=== PATIENT | male | born 1940 | race Caucasian/White ===

== ENCOUNTER 2021-08-06 12:51 | Inpatient (IN) | payer MEDICARE, OTHER ==
[~2021-08-06] VITALS: Ht 180.3 cm; Wt 74.1 kg
[~2021-08-06 12:51] MED LIST: ALDACTONE 25MG25 MG PO; ALDACTONE25 MG PO; ALPRAZOLAM0.5 MG PO; AMIODARONE HCL200 MG PO; ASPIRIN EC81 MG PO; ATORVASTATIN CA20 MG PO; CARDURA2 MG PO; CEFPODOXIME PR200 MG PO; CLOPIDOGREL75 MG PO; COLACE 100MG C100 MG PO; COZAAR 25MG TAB25 MG PO; CYANOCOBAL1000 MCG/1 INJ; DOXAZOSIN MESYLA2 MG PO; DULERA 200 MCG8.8 GM INH; ENTRESTO 24 MG1 EACH PO; FINASTERIDE5 MG PO; FUROSEMIDE40 MG PO; GABAPENTIN100 MG PO; GLIPIZIDE10 MG PO; K-DUR TAB 20 M20 MEQ PO; K-TAB ER20 MEQ PO; LASIX20 MG PO; LEVAQUIN500 MG PO; LEVOCETIRIZINE D5 MG PO; LEVOTHYROXINE100 MCG PO; LISINOPRIL2.5 MG PO; LOPRESSOR 50 MG50 MG PO; METFORMIN HCL500 MG PO; NICOTINE PATCH1 EAC2 TOP; NYSTATIN100000 UNI PO; OMEPRAZOLE20 MG PO; PANTOPRAZOLE SO40 MG PO; PAROXETINE HCL10 MG PO; TYLENOL WITH C1 EACH PO; ULTRAM50 MG PO; VITAMIN D21250 MCG PO; XANAX0.5 MG PO
[2021-08-06 14:31] LABS: HEMOGLOBIN 13.4 gm/dl (14.0-17.5); RED BLOOD COUNT 4.26 M/UL (4.20-5.50); WHITE BLOOD COUNT 17.3 K/UL (4.5-11.0)
[2021-08-06 15:02] LABS: BUN/CREATININE RATIO 17 (0-10)
[2021-08-06] MEDS ORDERED: ATORVASTATIN CA40 MG PO (18:36)
[2021-08-06] MEDS ORDERED: CLOPIDOGREL75 MG PO (18:37)
[2021-08-06] MEDS ORDERED: METOPROLOL TART50 MG PO (18:42)
[2021-08-06] MEDS ORDERED: ENTRESTO 24 MG1 EACH PO (18:45)
[2021-08-06] MEDS ORDERED: NITROGLYCERIN0.4 MG SL (18:46)
[2021-08-06] MEDS ORDERED: KLONOPIN0.5 MG PO (18:46)
[2021-08-06] MEDS ORDERED: LEVOCETIRIZINE D5 MG PO (18:47)
[2021-08-06] MEDS ORDERED: BUMETANIDE1 MG PO (18:47)
[2021-08-06] MEDS ORDERED: LEVOTHYROXINE50 MCG PO (18:48)
[2021-08-07 03:20] LABS: CANDIDA ALBICANS Not Detected (Negative); CANDIDA KRUSEI Not Detected (Negative); CANDIDA TROPICALIS Not Detected (Negative); ESCHERICHIA COLI Not Detected (Negative); HAEMOPHILUS INFLUENZAE Not Detected (Negative); KLEBSIELLA OXYTOCA Not Detected (Negative); KLEBSIELLA PNEUMONIAE Not Detected (Negative); KPC-CARBAPENEM-RESISTANCE GENE Not Detected (Negative); PROTEUS Not Detected (Negative); PSEUDOMONAS AERUGINOSA Not Detected (Negative); SERRATIA MARCESANS Not Detected (Negative); STAPHYLOCOCCUS Not Detected (Negative); STAPHYLOCOCCUS AUREUS Not Detected (Negative); STREP AGALACTIAE (GROUP B) Not Detected (Negative); STREP PYOGENES (GROUP A) Not Detected (Negative); vanA/B (VANCOMYCIN RESIST GENE Not Detected (Negative)
[2021-08-07 04:33] LABS: STREPTOCOCCUS DETECTED (Negative)
[2021-08-07 08:57] LABS: HEMOGLOBIN 11.6 gm/dl (14.0-17.5)
[2021-08-07 08:58] LABS: RED BLOOD COUNT 3.66 M/UL (4.20-5.50); WHITE BLOOD COUNT 12.7 K/UL (4.5-11.0)
[2021-08-08 02:33] LABS: HEMOGLOBIN 10.7 gm/dl (14.0-17.5); RED BLOOD COUNT 3.38 M/UL (4.20-5.50); WHITE BLOOD COUNT 11.6 K/UL (4.5-11.0)
--- NOTE | 2021-08-08 06:43 | NUR ---
Notified Dr of EKG results - Dr stated it looked like sinus tachycardia. No new orders received.
--- NOTE | 2021-08-08 08:30 | NUR ---
CONTACTED AT THIS TIME AND EXPLAINED THAT THE PARTIENT WAS STILL HAVING A HEART RATE IN THE 120-130 RANGE AND THAT THE PATIENT WAS HAVING MILD INCREASED WORK OF BREATHING. HE STATES TO DO AN EKG AND [facility] WILL COME SEE THE PATIENT. I REQUESTED TRANSFER TO A HIGHER LEVEL OF CARE AND HE STATES TO HOLD OFF AT THIS TIME.
[2021-08-09 03:13] LABS: RED BLOOD COUNT 3.53 M/UL (4.20-5.50)
[2021-08-09 03:18] LABS: WHITE BLOOD COUNT 7.8 K/UL (4.5-11.0)
[2021-08-10 03:18] LABS: HEMOGLOBIN 10.5 gm/dl (14.0-17.5); RED BLOOD COUNT 3.33 M/UL (4.20-5.50); WHITE BLOOD COUNT 6.3 K/UL (4.5-11.0)
[2021-08-11 08:27] LABS: HEMOGLOBIN 11.2 gm/dl (14.0-17.5); RED BLOOD COUNT 3.57 M/UL (4.20-5.50)
[2021-08-11 08:28] LABS: WHITE BLOOD COUNT 8.4 K/UL (4.5-11.0)
[2021-08-11] MEDS ORDERED: LOPRESSOR 25 MG25 MG PO (09:14)
[2021-08-11] MEDS ORDERED: ELIQUIS 5 MG TAB5 MG PO (09:14)
[2021-08-11] MEDS ORDERED: CEFTRIAXON2 GM/50 ML IV (09:14)
[2021-08-11] MEDS ORDERED: POLYETHYLENE GL17 GM PO (09:27)
[2021-08-11] MEDS ORDERED: LEVOTHYROXINE75 MCG PO (09:27)
[2021-08-11] MEDS ORDERED: DULCOLAX5 MG PO (09:27)
[2021-08-11] MEDS ORDERED: AMITIZA24 MCG PO (09:27)
[2021-08-11] MEDS ORDERED: AMIODARONE HCL200 MG PO ×2 (09:27)
[2021-08-11] MEDS ORDERED: ROXICODONE TAB 55 MG PO (09:39)
[2021-08-11] MEDS ORDERED: TOPROL XL50 MG PO (09:48)
--- NOTE | 2021-08-11 14:06 | NUR ---
REPORT CALLED TO [facility] AND [facility] CALLED TO TRANSPORT PT AT THIS TIME
== END 2021-08-12 03:39 | disposition swing bed (61) | DRG 871 ==
LOC: ER1 12:51 → CDU 17:46 → M/S 17:46
PROVIDERS: Emergency Medicine; Internal Medicine; Physician Assistant; ADMIT Internal Medicine
PROC: B24BZZZ Ultrasonography of Heart with Aorta (ICD-10-PCS; principal; 2021-08-07)
PROC: 3E03329 Introduction of Other Anti-infective into Peripheral Vein, Percutaneous Approach (ICD-10-PCS; 2021-08-08)
DX: A40.8 Other streptococcal sepsis (principal); J18.9 Pneumonia, unspecified organism; Z20.822 Contact with and (suspected) exposure to COVID-19; I50.22 Chronic systolic (congestive) heart failure; M48.56XA Collapsed vertebra, not elsewhere classified, lumbar region, initial encounter for fracture; I13.0 Hypertensive heart and chronic kidney disease with heart failure and stage 1 through stage 4 chronic kidney disease, or unspecified chronic kidney disease; N17.9 Acute kidney failure, unspecified; E11.22 Type 2 diabetes mellitus with diabetic chronic kidney disease; I25.10 Atherosclerotic heart disease of native coronary artery without angina pectoris; N18.30 Chronic kidney disease, stage 3 unspecified; I71.4 Abdominal aortic aneurysm, without rupture; I25.5 Ischemic cardiomyopathy; K80.20 Calculus of gallbladder without cholecystitis without obstruction; N40.0 Benign prostatic hyperplasia without lower urinary tract symptoms; R33.9 Retention of urine, unspecified; I48.0 Paroxysmal atrial fibrillation; F17.210 Nicotine dependence, cigarettes, uncomplicated; G89.29 Other chronic pain; M54.9 Dorsalgia, unspecified; E78.5 Hyperlipidemia, unspecified; E87.6 Hypokalemia; Z79.01 Long term (current) use of anticoagulants; Z79.82 Long term (current) use of aspirin; Z90.49 Acquired absence of other specified parts of digestive tract; Z98.890 Other specified postprocedural states; Z95.5 Presence of coronary angioplasty implant and graft; Z95.810 Presence of automatic (implantable) cardiac defibrillator; I25.2 Old myocardial infarction; Z88.2 Allergy status to sulfonamides
CPT/HCPCS: ECHO; 36415; 71045; 71046; 72100; 72132; 80048; 80053; 81001; 82533; 82550; 82553; 82962; 83036; 83605; 83690; 83735; 83880; 84132; 84439; 84443; 84484; 85025; 85027; 87040; 87077; 87086; 87150; 87186; 93005; 93306; 96372; 96374; 96375; 96376; 97116-GP-CQ; 97161; 97166; 97530-GP-CQ; 97535; 99285; C1751; G0378; J0696; J1644; J1940; J2185; J2270; J2405; J2543; J3370; J7070; Q9967; U0002

== ENCOUNTER 2021-09-01 20:55 | Inpatient (IN) | payer MEDICARE, OTHER ==
[~2021-09-01] VITALS: Ht 180.3 cm; Wt 61.2 kg
[~2021-09-01 20:55] MED LIST changes: +AMITIZA24 MCG PO; +ATORVASTATIN CA40 MG PO; +BUMETANIDE1 MG PO; +CEFTRIAXON2 GM/50 ML IV; +DULCOLAX5 MG PO; +ELIQUIS 5 MG TAB5 MG PO; +K-TAB ER10 MEQ PO; -K-TAB ER20 MEQ PO; +KLONOPIN0.5 MG PO; +LEVOTHYROXINE50 MCG PO; +LEVOTHYROXINE75 MCG PO; +LOPRESSOR 25 MG25 MG PO; +METOPROLOL TART50 MG PO; +NITROGLYCERIN0.4 MG SL; +POLYETHYLENE GL17 GM PO; +ROXICODONE TAB 55 MG PO; +TOPROL XL50 MG PO
[2021-09-02 02:28] LABS: HEMOGLOBIN 10.8 gm/dl (14.0-17.5); RED BLOOD COUNT 3.54 M/UL (4.20-5.50); WHITE BLOOD COUNT 6.7 K/UL (4.5-11.0)
[2021-09-02] MEDS ORDERED: LEVOTHYROXINE50 MCG PO (11:24)
[2021-09-02] MEDS ORDERED: METOPROLOL TART50 MG PO (11:25)
[2021-09-04 03:17] LABS: HEMOGLOBIN 10.6 gm/dl (14.0-17.5); RED BLOOD COUNT 3.48 M/UL (4.20-5.50); WHITE BLOOD COUNT 6.9 K/UL (4.5-11.0)
[2021-09-04 03:51] LABS: BUN/CREATININE RATIO 13 (0-10)
[2021-09-05 03:27] LABS: HEMOGLOBIN 10.5 gm/dl (14.0-17.5); RED BLOOD COUNT 3.4 M/UL (4.20-5.50); WHITE BLOOD COUNT 5.7 K/UL (4.5-11.0)
[2021-09-05 03:52] LABS: BUN/CREATININE RATIO 9 (0-10)
[2021-09-07 02:40] LABS: HEMOGLOBIN 10.7 gm/dl (14.0-17.5); RED BLOOD COUNT 3.58 M/UL (4.20-5.50); WHITE BLOOD COUNT 5.6 K/UL (4.5-11.0)
[2021-09-07 03:35] LABS: BUN/CREATININE RATIO 11 (0-10)
[2021-09-08 18:04] LABS: HEMOGLOBIN 11.6 gm/dl (14.0-17.5); RED BLOOD COUNT 3.83 M/UL (4.20-5.50); WHITE BLOOD COUNT 6.3 K/UL (4.5-11.0)
[2021-09-08 18:40] LABS: BUN/CREATININE RATIO 17 (0-10)
[2021-09-09 02:59] LABS: HEMOGLOBIN 10.7 gm/dl (14.0-17.5); RED BLOOD COUNT 3.59 M/UL (4.20-5.50); WHITE BLOOD COUNT 5.9 K/UL (4.5-11.0)
[2021-09-09 03:21] LABS: BUN/CREATININE RATIO 17 (0-10)
[2021-09-10 03:20] LABS: HEMOGLOBIN 11.1 gm/dl (14.0-17.5); RED BLOOD COUNT 3.63 M/UL (4.20-5.50)
[2021-09-10 04:02] LABS: BUN/CREATININE RATIO 18 (0-10)
--- NOTE | 2021-09-10 16:40 | NUR ---
Report to [facility] attempted at [id number]. Nurse declined report and asked to call back in an hour because they were occupied with another patient.
[2021-09-10] MEDS ORDERED: VANCOMYCIN IV (18:23)
[2021-09-10] MEDS ORDERED: HYDROCODON-ACE1 EAC4 PO (18:23)
[2021-09-10] MEDS ORDERED: ENOXAPARIN60 MG/0.6 SC (18:23)
[2021-09-10] MEDS ORDERED: MEROPENEM1 GM IV (18:23)
--- NOTE | 2021-09-10 20:09 | NUR ---
PATIENT ATTEMPTING TO CLIMB OUT OF BED. PATIENT MOVED CLOSER TO NURSES STATION, DOUBLE BED ALARM ON, BED IN LOWEST POSITION CALL [facility] WITH IN REACH.TELE WAS APPLIED TO PATIENT AND PATIENT CONTINUES TO REMOVE. PATIENT STATED "DON'T PUT THAT SH$T ON ME, I DONT GIVE A DAMN WHAT ITS FOR". WILL CONTINUE TO REAPPLY TELE TO PATIENT. PROVIDER DR. HELM WAS MADE AWARE THAT PATIENT IS REFUSING TELE.
--- NOTE | 2021-09-10 23:13 | NUR ---
REAPPLIED TELE AFTER ADMINISTERING PATIENTS MEDICATIONS. HE AGRREDED TO WEAR "FOR A LITTLE WHILE".
== END 2021-09-10 22:46 | disposition short-term general hospital (02) | DRG 540 ==
LOC: ER1 20:55 → M/S 09-02 06:51 → CDU 09-02 06:51 → M/S 09-02 06:51
PROVIDERS: Internal Medicine; Student in an Organized Health Care Education/Training Program; ADMIT Internal Medicine
DX: M46.26 Osteomyelitis of vertebra, lumbar region (principal); M48.56XA Collapsed vertebra, not elsewhere classified, lumbar region, initial encounter for fracture; I50.22 Chronic systolic (congestive) heart failure; I13.0 Hypertensive heart and chronic kidney disease with heart failure and stage 1 through stage 4 chronic kidney disease, or unspecified chronic kidney disease; E44.0 Moderate protein-calorie malnutrition; Z68.1 Body mass index [BMI] 19.9 or less, adult; E87.2 Acidosis; M46.46 Discitis, unspecified, lumbar region; I48.0 Paroxysmal atrial fibrillation; I25.10 Atherosclerotic heart disease of native coronary artery without angina pectoris; E86.0 Dehydration; N40.0 Benign prostatic hyperplasia without lower urinary tract symptoms; K59.00 Constipation, unspecified; M54.50 Low back pain, unspecified; E11.22 Type 2 diabetes mellitus with diabetic chronic kidney disease; N18.30 Chronic kidney disease, stage 3 unspecified; M48.061 Spinal stenosis, lumbar region without neurogenic claudication; I95.9 Hypotension, unspecified; K21.9 Gastro-esophageal reflux disease without esophagitis; E55.9 Vitamin D deficiency, unspecified; G89.29 Other chronic pain; E78.5 Hyperlipidemia, unspecified; Z95.1 Presence of aortocoronary bypass graft; Z90.49 Acquired absence of other specified parts of digestive tract; Z98.890 Other specified postprocedural states; Z95.810 Presence of automatic (implantable) cardiac defibrillator; Z82.49 Family history of ischemic heart disease and other diseases of the circulatory system; Z79.01 Long term (current) use of anticoagulants; Z79.82 Long term (current) use of aspirin
CPT/HCPCS: 36415; 72100; 72133; 80053; 81001; 82533; 82962; 83605; 83735; 84100; 84439; 84443; 85025; 85027; 85610; 85730; 87040; 97116; 97116-GP-CQ; 97161; 97165; 97530; 97530-GP-CQ; 97535; 99284; G0378; J1650; J2185; J3370; J7070; Q9967